=== PATIENT | male | born 1995 | race Caucasian/White ===

== ENCOUNTER 2021-09-29 10:55 | Emergency (ER) | payer OTHER ==
[~2021-09-29 10:55] MED LIST: ANAPROX DS550 MG PO; IBUPROFEN 800800 M1 PO; IBUPROFEN 800800 MG PO; NORCO 5-325 TA1 EACH PO
== END 2021-09-29 12:17 | disposition left against medical advice (07) ==
LOC: M.ERS 10:55
DX: U07.1 COVID-19 (principal); Z53.21 Procedure and treatment not carried out due to patient leaving prior to being seen by health care provider